=== PATIENT | male | born 1955 | race Two or more races ===

== ENCOUNTER 2020-03-27 09:56 | Outpatient (CLI) | payer OTHER | END 2020-03-27 10:00 | disposition home or self-care (01) | LOC: SONOGRAMA 09:56 → MAMO-SONO 10:15 | PROVIDERS: ATTEND Urology | DX: N40.0 Benign prostatic hyperplasia without lower urinary tract symptoms (principal); F52.21 Male erectile disorder; R31.1 Benign essential microscopic hematuria; E29.1 Testicular hypofunction ==

== ENCOUNTER 2020-05-16 16:23 | Outpatient (CLI) | payer OTHER | END 2020-05-16 16:27 | disposition home or self-care (01) | LOC: LAB 16:23 | PROVIDERS: ATTEND Urology | DX: N30.00 Acute cystitis without hematuria (principal) ==

== ENCOUNTER 2020-06-06 07:19 | Outpatient (CLI) | payer OTHER | END 2020-06-06 07:24 | disposition home or self-care (01) | LOC: SONOGRAMA 07:19 | PROVIDERS: ATTEND Urology | DX: C61 Malignant neoplasm of prostate (principal); R97.20 Elevated prostate specific antigen [PSA]; D29.1 Benign neoplasm of prostate ==

== ENCOUNTER 2020-10-03 07:37 | Outpatient (CLI) | payer OTHER | END 2020-10-03 07:39 | disposition home or self-care (01) | LOC: RAD 07:37 | PROVIDERS: ATTEND Internal Medicine Geriatric Medicine | DX: I11.9 Hypertensive heart disease without heart failure (principal); R06.02 Shortness of breath ==

== ENCOUNTER 2021-12-18 08:15 | Outpatient (CLI) | payer OTHER | END 2021-12-18 08:21 | disposition home or self-care (01) | LOC: RAD 08:15 | PROVIDERS: ATTEND Internal Medicine Geriatric Medicine | DX: I11.9 Hypertensive heart disease without heart failure (principal); R06.02 Shortness of breath ==

== ENCOUNTER 2023-03-18 12:09 | Outpatient (CLI) | payer OTHER | END 2023-03-18 12:17 | disposition home or self-care (01) | LOC: RAD 12:09 | PROVIDERS: ATTEND Urology | DX: C61 Malignant neoplasm of prostate (principal) ==

== ENCOUNTER 2023-10-07 07:02 | Outpatient (CLI) | payer OTHER | END 2023-10-07 07:07 | disposition home or self-care (01) | LOC: RAD 07:02 | DX: M65.861 Other synovitis and tenosynovitis, right lower leg (principal); M24.561 Contracture, right knee ==

== ENCOUNTER 2024-07-15 07:02 | Outpatient (CLI) | payer OTHER | END 2024-07-15 07:08 | disposition home or self-care (01) | LOC: RAD 07:02 | PROVIDERS: ATTEND Urology | DX: C61 Malignant neoplasm of prostate (principal); R79.89 Other specified abnormal findings of blood chemistry; R31.29 Other microscopic hematuria ==